=== PATIENT | female | born 1985 | race Caucasian/White ===

== ENCOUNTER 2018-09-22 02:20 | Inpatient (IN) | payer OTHER ==
[2018-09-22] MEDS ORDERED: CITRIC ACID/SODIUM CITRATE 30 ML UNIT-DOSE CUP PO ONE (02:45)
[2018-09-22] MEDS ORDERED: ELECTROLYTE-148 SOLN 500 ML IV ONE (02:45)
--- NOTE | 2018-09-22 03:06 | HP ---
Past Medical History - Admission Chief Complaint: contractions History of Present Illness: 33yo EDC 09/26/18 SIUP at 39.3 weeks presents with c/o ctx. PNC at [facility]-noncompliant and significant for medical history of sarcoidosis, neuropathy, unspecified convulsions, herniated disc, narrowing of spine. Pt denies lof, vaginal bleeding. 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 Weeks Gestation by Dates: 39.3 ...EDC by Dates: 09/26/18 Psych: Yes: Anxiety, Depression Rheumatology: Yes: Sarcoidosis - Past Surgical History Past Surgical History: Yes: Hx Myomectomy: No Hx Transabdominal Cerclage: No - Smoking History Smoking history: Current every day smoker - Alcohol/Substance Use History of Substance Use: reports: None Review of Systems - Review of Systems Constitutional: reports: No Symptoms Eyes: reports: No Symptoms HENT: reports: No Symptoms Neck: reports: No Symptoms Cardiovascular: reports: No Symptoms Respiratory: reports: No Symptoms Gastrointestinal: reports: Abdominal Pain Genitourinary: reports: No Symptoms Breasts: reports: No Symptoms Reported Musculoskeletal: reports: No Symptoms Integumentary: reports: No Symptoms Neurological: reports: No Symptoms Endocrine: reports: No Symptoms Hematology/Lymphatic: reports: No Symptoms Psychiatric: reports: No Symptoms Pain Intensity: 3 Physical Exam - Maternity Constitutional: Yes: Well Nourished, No Distress, Calm Eyes: Yes: WNL, Conjunctiva Clear, EOM Intact HENT: Yes: WNL, Atraumatic, Normocephalic Neck: Yes: WNL, Supple, Trachea Midline Cardiovascular: Yes: WNL, Regular Rate and Rhythm Breast(s): Yes: WNL - Abdominal Exam/OB Number of Fetuses: Single Presentation: Vertex Contractions: Yes Intensity: Mild Monitor Mode: External Category: I Accelerations: Uniform Decelerations: None - Vaginal Exam/OB Vaginal Bleediing: No Dilatation (cm): closed Amniotic Membrane Status: Intact - Physical Exam Extremities: Yes: WNL Hemorrhage Risk Assessment - Risk Factors Medium Risk Factors: Yes: Prior , uterine surgery,or multiple laparotomies, Greater than 4 previous births Risk Score: 2 Risk Level: High Risk Problem List - Problems (1) Previous section Assessment/Plan: 33yo at term with contractions. Pt with multiple comorbidities, high risk patient with care at [facility] admit to labor and delivery IV, admission labs plan for transfer to [facility]; high risk patient at term, early labor Code(s): Z98.891 - HISTORY OF UTERINE SCAR FROM PREVIOUS SURGERY
[2018-09-22] MEDS ORDERED: ELECTROLYTE-148 SOLN 1,000 ML IV SCH (03:15)
[2018-09-22 03:38] LABS: URINE APPEARANCE CLOUDY; URINE BILIRUBIN NEGATIVE (<2.0 mg/dL); URINE COLOR YELLOW; URINE GLUCOSE (UA) NEGATIVE (NEGATIVE); URINE KETONE NEGATIVE (NEGATIVE); URINE LEUK ESTERASE NEGATIVE (NEGATIVE); URINE NITRITE NEGATIVE (NEGATIVE); URINE PROTEIN NEGATIVE (NEGATIVE); URINE UROBILINOGEN NEGATIVE mg/dL (0.2-1.0)
[2018-09-22 03:45] LABS: BASO % 0.2 % (0-2.0); HEMATOCRIT 36.5 % (32.4-45.2); HEMOGLOBIN 12.4 GM/dL (10.7-15.3); LYMPH % 17.9 % (8-40); MCH 30.1 pg (25.7-33.7); MEAN CELL VOLUME 88.6 fl (80-96); MEAN PLT VOLUME 9.7 fl (7.5-11.1); MONO % 7.2 % (3.8-10.2); NEUT % 72.7 % (42.8-82.8); PLATELET COUNT 206 K/MM3 (134-434); RBC 4.12 M/mm3 (3.60-5.2); RDW 14.9 % (11.6-15.6); WHITE BLOOD COUNT 9.9 K/mm3 (4.0-10.0)
[2018-09-22 03:47] LABS: COCAINE, UR NEGATIVE ng/ml (CUTOFF=300); METHADONE, UR NEGATIVE ng/ml (CUTOFF=300); OPIATES, URI NEGATIVE ng/ml (CUTOFF=300); PHENCYCLIDINE,URINE NEGATIVE ng/ml (CUTOFF=25); URINE AMPHETAMINES NEGATIVE ng/ml (CUTOFF=500); URINE BARBITURATES NEGATIVE ng/ml (CUTOFF=200); URINE BENZODIAZEPINES NEGATIVE ng/ml (CUTOFF=200)
[2018-09-22 03:56] LABS: INR 0.94 (0.83-1.09); PROTHROMBIN TIME (PATIENT) 11.1 SEC (9.7-13.0)
[2018-09-22 03:59] LABS: ACTIVATED PTT 27.5 SECONDS (25.2-36.5)
[2018-09-22 04:08] LABS: ALK PHOS 202 U/L (45-117); ANION GAP 12 MMOL/L (8-16); BILIRUBIN,TOTAL 0.2 mg/dL (0.2-1); BLOOD UREA NITROGEN 6 mg/dL (7-18); CALCIUM 8.7 mg/dL (8.5-10.1); CHLORIDE 108 mmol/L (98-107); CO2 20 mmol/L (21-32); CREATININE 0.6 mg/dL (0.55-1.3); GLUCOSE,RANDOM 90 mg/dL (74-106); POTASSIUM 4.4 mmol/L (3.5-5.1); SGOT/AST 8 U/L (15-37); SGPT/ALT 12 U/L (13-61); SODIUM 140 mmol/L (136-145); TOT PROT 6.9 g/dl (6.4-8.2)
[2018-09-22 04:32] VITALS: BMI 37.2
[2018-09-22 04:41] VITALS: BP 121/67; PULSE 78; TEMP 97.8
[2018-09-23 06:06] LABS: HBsAG SCREEN Negative (Negative)
[2018-09-23 08:06] LABS: RUBELLA IgG ANTIBODY 2.37 index (Immune >0.99)
== END 2018-09-22 04:25 | disposition short-term general hospital (02) | DRG 566 ==
LOC: JDEL 02:20 → JLDR 02:45
PROVIDERS: ADMIT Obstetrics & Gynecology; ATTEND Obstetrics & Gynecology
DX: O34.219 Maternal care for unspecified type scar from previous cesarean delivery (principal); O09.93 Supervision of high risk pregnancy, unspecified, third trimester; O99.214 Obesity complicating childbirth; E66.8 Other obesity; O99.343 Other mental disorders complicating pregnancy, third trimester; F41.8 Other specified anxiety disorders; O26.893 Other specified pregnancy related conditions, third trimester; D86.9 Sarcoidosis, unspecified; F17.210 Nicotine dependence, cigarettes, uncomplicated; O15.03 Eclampsia complicating pregnancy, third trimester; Z3A.39 39 weeks gestation of pregnancy; Z91.19 Patient's noncompliance with other medical treatment and regimen
CPT/HCPCS: 36415; 80053; 80307; 81003; 85025; 85610; 85730; 86593; 86762; 86850; 86900; 86901; 87340; 87389

== ENCOUNTER 2018-09-22 20:10 | Inpatient (IN) | payer OTHER ==
[2018-09-22 21:14] VITALS: BMI 37.2
[2018-09-22] MEDS ORDERED: CITRIC ACID/SODIUM CITRATE 30 ML UNIT-DOSE CUP PO ONE (21:30)
[2018-09-22] MEDS ORDERED: ELECTROLYTE-148 SOLN 1,000 ML IV SCH (21:30)
--- NOTE | 2018-09-22 21:36 | HP ---
Past Medical History - Primary Care Physician PCP:: Bakari Sin - Admission Chief Complaint: 39 weeks, 5 previous c/s. 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 Weeks Gestation by Dates: 39.3 ...EDC by Dates: 09/26/18 ...EDC by Sono: 10/06/18 Psych: Yes: Anxiety, Depression Rheumatology: Yes: Sarcoidosis - Past Surgical History Past Surgical History: Yes: Hx Myomectomy: No Hx Transabdominal Cerclage: No Additional Surgical History: hx of ectopic - Smoking History Smoking history: Current every day smoker Have you smoked in the past 12 months: Yes Aproximately how many cigarettes per day: 10 - Alcohol/Substance Use Hx Alcohol Use: No History of Substance Use: reports: None - Social History History of Recent Travel: No Home Medications - Allergies Allergies/Adverse Reactions: Allergies Allergy/AdvReac Type Severity Reaction Status Date / Time blueberry Allergy Verified 09/22/18 20:41 cashew nut Allergy Verified 09/22/18 20:41 honey Allergy Verified 09/22/18 20:41 methotrexate Allergy Verified 09/22/18 20:41 mushroom Allergy Verified 09/22/18 20:41 prednisone Allergy Verified 09/22/18 20:41 - Home Medications Home Medications: Ambulatory Orders Albuterol Sulfate Inhaler - [Ventolin Hfa Inhaler -] 1 puff IH PRN 09/22/18 Vit 108/Iron/Folic AC [ One Tablet] 1 each PO DAILY 09/22/18 Review of Systems - Review of Systems Constitutional: reports: No Symptoms Eyes: reports: No Symptoms HENT: reports: No Symptoms Neck: reports: No Symptoms Cardiovascular: reports: No Symptoms Respiratory: reports: No Symptoms Gastrointestinal: reports: No Symptoms Genitourinary: reports: Vaginal Bleeding Breasts: reports: No Symptoms Reported Musculoskeletal: reports: No Symptoms Integumentary: reports: No Symptoms Neurological: reports: No Symptoms Endocrine: reports: No Symptoms Hematology/Lymphatic: reports: No Symptoms Psychiatric: reports: No Symptoms Physical Exam - Maternity Vital Signs: Vital Signs Temperature 98.5 F 09/22/18 20:48 Pulse Rate 84 09/22/18 20:48 Respiratory Rate 19 09/22/18 20:48 Blood Pressure 121/61 09/22/18 20:48 O2 Sat by Pulse Oximetry (%) Constitutional: Yes: Obese Eyes: Yes: WNL HENT: Yes: WNL Neck: Yes: WNL - Abdominal Exam/OB Fundal Height: 38 Number of Fetuses: Single Presentation: Vertex Contractions: Yes Regularity: Irregular Intensity: Mild Monitor Mode: External Heart Rate Location: [facility] Category: I Accelerations: Uniform Decelerations: None - Vaginal Exam/OB Vaginal Bleediing: Bloody Show Speculum Exam: Yes Dilatation (cm): closed Effacement (%): 50 Presentation: Vertex/Position Station: -3 - Physical Exam Musculoskeletal: Yes: WNL Extremities: Yes: WNL Edema: Yes Edema: LLE: 1+, RLE: 1+ Deep Tendon Reflex Grade: Normal +2 ...Motor Strength: WNL Psychiatric: Yes: WNL Hemorrhage Risk Assessment - Risk Factors Medium Risk Factors: Yes: Prior , uterine surgery,or multiple laparotomies, Greater than 4 previous births Risk Score: 2 Risk Level: High Risk Problem List - Problems (1) with 39 completed weeks gestation Code(s): Z3A.39 - 39 WEEKS GESTATION OF (2) Previous section Code(s): Z98.891 - HISTORY OF UTERINE SCAR FROM PREVIOUS SURGERY (3) Obesity Code(s): E66.9 - OBESITY, UNSPECIFIED (4) Prior poor obstetrical history in third trimester, antepartum Code(s): O09.293 - SUPRVSN OF PREG W POOR REPRODCTV OR OBSTET HX, THIRD TRI Assessment/Plan plan admit, fhm, bedside sono, transfer to [facility] , risks of c/s here discussed , report given to DR Bridges at [facility], transfer [facility]
[2018-09-22 22:13] VITALS: BP 120/74; PULSE 91; TEMP 98.5
--- NOTE | 2018-09-25 14:39 | DS ---
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: Vital Signs Temperature 98.5 F 09/22/18 21:55 Pulse Rate 91 H 09/22/18 21:55 Respiratory Rate 20 09/22/18 21:55 Blood Pressure 120/74 09/22/18 21:55 O2 Sat by Pulse Oximetry (%) Constitutional: Yes: Well Nourished, No Distress, Calm Eyes: Yes: WNL, Conjunctiva Clear, EOM Intact HENT: Yes: WNL, Atraumatic, Normocephalic Neck: Yes: WNL, Supple, Trachea Midline Cardiovascular: Yes: WNL, Regular Rate and Rhythm Respiratory: Yes: WNL, Regular, CTA Bilaterally Gastrointestinal: Yes: WNL ...Rectal Exam: Yes: WNL Renal/: Yes: WNL Cervix: Yes: Normal, Bleeding Adnexa: Not Palpable: Left, Right Breast(s): Yes: WNL Musculoskeletal: Yes: WNL Extremities: Yes: WNL Integumentary: Yes: WNL Neurological: Yes: WNL, Alert, Oriented ...Motor Strength: WNL Psychiatric: Yes: WNL, Alert, Oriented Discharge Summary Reason For Visit: LABOR Procedures: Principal: admitted for transfer to [facility]. fhr cat 1, vs stable Condition: Stable - Instructions Disposition: TRANSFER ACUTE CARE/OTHER HOSP - Home Medications Comprehensive Discharge Medication List: Ambulatory Orders Albuterol Sulfate Inhaler - [Ventolin Hfa Inhaler -] 1 puff IH PRN 09/22/18 Vit 108/Iron/Folic AC [ One Tablet] 1 each PO DAILY 09/22/18
== END 2018-09-22 22:12 | disposition short-term general hospital (02) | DRG 560 ==
LOC: JLDR 20:10
PROVIDERS: ADMIT Obstetrics & Gynecology; ATTEND Obstetrics & Gynecology
DX: O67.8 Other intrapartum hemorrhage (principal); O75.89 Other specified complications of labor and delivery; O34.211 Maternal care for low transverse scar from previous cesarean delivery; N85.8 Other specified noninflammatory disorders of uterus; O99.214 Obesity complicating childbirth; E66.9 Obesity, unspecified; O09.293 Supervision of pregnancy with other poor reproductive or obstetric history, third trimester; Z68.37 Body mass index [BMI] 37.0-37.9, adult; Z3A.39 39 weeks gestation of pregnancy; F17.210 Nicotine dependence, cigarettes, uncomplicated
CPT/HCPCS: 76815-TC

== ENCOUNTER 2021-12-12 04:12 | Observation (INO) | payer OTHER ==
[2021-12-12] MEDS ORDERED: ACETAMINOPHEN 1000 MG/100 ML BAG IVPB ONE (04:57)
[2021-12-12] MEDS ORDERED: ACETAMINOPHEN INJECTION 100 ML IVPB ONE (05:26)
[2021-12-12 05:59] LABS: BASO % 0.4 % (0-2.0); EOS % 2.7 % (0-4.5); HEMATOCRIT 38.6 % (32.4-45.2); HEMOGLOBIN 12.9 GM/dL (10.7-15.3); LYMPH % 20.6 % (8-40); MCHC 33.5 g/dl (32.0-36.0); MEAN CELL VOLUME 86.8 fl (80-96); MEAN PLT VOLUME 9.5 fl (7.5-11.1); MONO % 8.3 % (3.8-10.2); PLATELET COUNT 184 10^3/uL (134-434); RBC 4.44 M/mm3 (3.60-5.2); RDW 13.6 % (11.6-15.6); WHITE BLOOD COUNT 5.8 K/mm3 (4.0-10.0)
[2021-12-12 06:26] LABS: CHLORIDE 109 mmol/L (98-107); SODIUM 141 mmol/L (136-145)
[2021-12-12 06:28] LABS: ALBUMIN 3.8 g/dl (3.4-5.0); ANION GAP 7 MMOL/L (8-16); BLOOD UREA NITROGEN 13.7 mg/dL (7-18); CALCIUM 8.8 mg/dL (8.5-10.1); CO2 25 mmol/L (21-32); GLUCOSE,RANDOM 108 mg/dL (74-106); LIPASE 72 U/L (73-393)
[2021-12-12 06:31] LABS: CREATININE 0.8 mg/dL (0.55-1.3); SGOT/AST 11 U/L (15-37); SGPT/ALT 22 U/L (13-61)
[2021-12-12 06:33] LABS: BILIRUBIN,TOTAL 0.3 mg/dL (0.2-1); TOT PROT 7.1 g/dl (6.4-8.2)
[2021-12-12 06:34] LABS: ALK PHOS 77 U/L (45-117)
[2021-12-12 08:23] LABS: INR 1.08 (0.83-1.09); PROTHROMBIN TIME (PATIENT) 12.4 SEC (9.7-13.0)
[2021-12-12 08:26] LABS: ACTIVATED PTT 30.8 SECONDS (25.2-36.5)
[2021-12-12] MEDS ORDERED: SODIUM CHLORIDE 500 ML IV STA (09:58)
[2021-12-12] MEDS ORDERED: ONDANSETRON 4 MG/2 ML VIAL IVPUSH ONE (09:58)
[2021-12-12] MEDS ORDERED: ASPIRIN 81 MG CHEWABLE TABLETS PO ONE (09:59)
[2021-12-12] MEDS ORDERED: ONDANSETRON 4 MG/2 ML VIAL ONE (10:25)
[2021-12-12] MEDS ORDERED: ASPIRIN 81 MG CHEWABLE TABLETS ONE (10:25)
[2021-12-12] MEDS ORDERED: ACETAMINOPHEN 325 MG TABLET (FP) PO PRN (10:58)
[2021-12-12] MEDS ORDERED: ALBUTEROL SO4 HFA INHALER IH SCH (11:45)
[2021-12-12] MEDS ORDERED: ATORVASTATIN CA 40 MG TABLET (FP) ONE (11:48)
[2021-12-12] MEDS ORDERED: ATORVASTATIN CA 40 MG TABLET (FP) PO ONE (12:00)
[2021-12-12] MEDS: BUDESONIDE/FORMETEROL FUMARATE 160/4.5 mcg INHALER IH SCH (12:24)
[2021-12-12] MEDS ORDERED: ALBUTEROL SO4 HFA INHALER IH PRN (12:35)
[2021-12-12 12:38] LABS: CHOLESTEROL 133 mg/dL (50-200); LDL CHOLESTEROL (ONLY SJRH) 80 mg/dL (5-100); TRIGLYCERIDES 180 mg/dL (0-150)
[2021-12-12 12:41] LABS: HDL CHOLESTEROL 30 mg/dL (40-60)
[2021-12-12] MEDS ORDERED: ACETAMINOPHEN 325 MG TABLET (FP) ONE (16:24)
[2021-12-12] MEDS ORDERED: MONTELUKAST NA 10 MG TABLET PO SCH (22:00)
[2021-12-13 00:07] VITALS: BMI 40.1
[2021-12-13] MEDS: levETIRAcetam 500 MG TABLET (FP) PO SCH ×2 (07:06→11:35)
[2021-12-13 07:25] LABS: BASO % 0.3 % (0-2.0); EOS % 3.7 % (0-4.5); HEMATOCRIT 37.4 % (32.4-45.2); HEMOGLOBIN 12.9 GM/dL (10.7-15.3); LYMPH % 24.1 % (8-40); MCH 30.3 pg (25.7-33.7); MCHC 34.5 g/dl (32.0-36.0); MONO % 9.8 % (3.8-10.2); NEUT % 62.1 % (42.8-82.8); PLATELET COUNT 164 10^3/uL (134-434); RBC 4.25 M/mm3 (3.60-5.2); RDW 13.9 % (11.6-15.6); WHITE BLOOD COUNT 5.3 K/mm3 (4.0-10.0)
[2021-12-13 08:07] LABS: ALBUMIN 3.4 g/dl (3.4-5.0)
[2021-12-13 08:08] LABS: BLOOD UREA NITROGEN 15.7 mg/dL (7-18); CALCIUM 8.4 mg/dL (8.5-10.1); MAGNESIUM 2.1 mg/dL (1.8-2.4)
[2021-12-13 08:10] LABS: CREATININE 0.9 mg/dL (0.55-1.3); PHOSPHOROUS 3.5 mg/dL (2.5-4.9)
[2021-12-13 08:11] LABS: BILIRUBIN,TOTAL 0.6 mg/dL (0.2-1); TOT PROT 6.5 g/dl (6.4-8.2)
[2021-12-13] MEDS ORDERED: ENOXAPARIN NA (PORCINE) 40 MG/0.4 ML DISP.SYRIN SQ SCH (10:00)
[2021-12-13] MEDS: BUDESONIDE/FORMETEROL FUMARATE 160/4.5 mcg INHALER IH SCH (11:36)
[2021-12-13 14:28] VITALS: BP 110/74; PULSE 70; TEMP 98.5
== END 2021-12-13 18:48 | disposition home or self-care (01) ==
LOC: JER 04:12 → JERBED 10:53 → J4W 12-13 00:09
PROVIDERS: ADMIT Internal Medicine; ATTEND Internal Medicine
PROC: 3E033NZ Introduction of Analgesics, Hypnotics, Sedatives into Peripheral Vein, Percutaneous Approach (ICD-10-PCS; principal; 2021-12-12)
PROC: 3E023GC Introduction of Other Therapeutic Substance into Muscle, Percutaneous Approach (ICD-10-PCS; 2021-12-12)
PROC: 3E033GC Introduction of Other Therapeutic Substance into Peripheral Vein, Percutaneous Approach (ICD-10-PCS; 2021-12-12)
DX: R07.9 Chest pain, unspecified (principal); R11.2 Nausea with vomiting, unspecified; R06.02 Shortness of breath; J45.909 Unspecified asthma, uncomplicated; D86.9 Sarcoidosis, unspecified; R56.9 Unspecified convulsions; Z86.73 Personal history of transient ischemic attack (TIA), and cerebral infarction without residual deficits; F41.9 Anxiety disorder, unspecified; M54.9 Dorsalgia, unspecified; K21.9 Gastro-esophageal reflux disease without esophagitis; F32.9 Major depressive disorder, single episode, unspecified; F41.8 Other specified anxiety disorders; E66.9 Obesity, unspecified; Z68.41 Body mass index [BMI] 40.0-44.9, adult; Z88.8 Allergy status to other drugs, medicaments and biological substances; Z91.018 Allergy to other foods; R73.03 Prediabetes; G62.9 Polyneuropathy, unspecified; J44.9 Chronic obstructive pulmonary disease, unspecified; F17.210 Nicotine dependence, cigarettes, uncomplicated; Z98.891 History of uterine scar from previous surgery
CPT/HCPCS: 36415; 71045-TC-FY; 71275-TC; 80053; 80061; 82550; 83036; 83690; 83735; 84100; 84484; 84703; 85025; 85610; 85730; 93005; 93010; 93306-TC; 93351; 96372; 96374; 96375; 99285-25; C9803; G0378; J0131; Q9967; U0003; U0005

== ENCOUNTER 2022-02-19 09:22 | Emergency (ER) | payer OTHER ==
[2022-02-19 09:44] VITALS: BP 117/64; PULSE 70; TEMP 98.2; BMI 35.4
[2022-02-19] MEDS ORDERED: KETOROLAC TROMETHAMINE 30 MG/1 ML VIAL IM ONE (10:19)
[2022-02-19] MEDS ORDERED: LIDOCAINE 5% TOPICAL PATCH TP ONE (10:27)
[2022-02-19] MEDS ORDERED: ACETAMINOPHEN 500 MG TABLET (FP) PO ONE (10:27)
[2022-02-19] MEDS ORDERED: METHOCARBAMOL 500 MG TABLET PO ONE (10:27)
[2022-02-19] MEDS ORDERED: KETOROLAC TROMETHAMINE 30 MG/1 ML VIAL ONE (10:37)
[2022-02-19] MEDS ORDERED: ACETAMINOPHEN 325 MG TABLET (FP) ONE (10:37)
[2022-02-19] MEDS ORDERED: METHOCARBAMOL 500 MG TABLET ONE (10:37)
[2022-02-19] MEDS ORDERED: LIDOCAINE 5% TOPICAL PATCH ONE (10:37)
[2022-02-19 12:49] LABS: EPI CELLS 11 /uL (0-25.1); HYALINE CASTS 0 /uL (0-3.1); URINE APPEARANCE CLEAR; URINE BACTERIA >9,000 /uL (0-1359); URINE BILIRUBIN NEGATIVE (NEGATIVE); URINE COLOR YELLOW; URINE GLUCOSE (UA) NEGATIVE (NEGATIVE); URINE KETONE NEGATIVE (NEGATIVE); URINE LEUK ESTERASE TRACE (NEGATIVE); URINE NITRITE POSITIVE (NEGATIVE); URINE PROTEIN NEGATIVE (NEGATIVE); URINE RBC 2 /uL (0-23.9); URINE UROBILINOGEN 0.2 mg/dL (0.2-1.0); URINE WBC 21 /uL (0-25.8)
[2022-02-19] MEDS ORDERED: NITROFURANTOIN MACROCRYSTAL 50 MG CAPSULE (FP) PO SCH (13:15)
[2022-02-19] MEDS ORDERED: NITROFURANTOIN MACROCRYSTAL 50 MG CAPSULE (FP) ONE (13:47)
[2022-02-19] MEDS ORDERED: LIDOCAINE PATCH REMOVAL MC ONE (22:00)
== END 2022-02-19 13:57 | disposition home or self-care (01) ==
LOC: JER 09:22
PROC: 3E023GC Introduction of Other Therapeutic Substance into Muscle, Percutaneous Approach (ICD-10-PCS; principal; 2022-02-19)
DX: M79.605 Pain in left leg (principal); R20.2 Paresthesia of skin; V03.10XA Pedestrian on foot injured in collision with car, pick-up truck or van in traffic accident, initial encounter
CPT/HCPCS: 72100-TC-FY; 72170-TC-FY; 73502-TC-LT-FY; 73552-TC-LT-FY; 73562-TC-LT-FY; 73590-TC-LT-FY; 81003; 84703; 99284-25

== ENCOUNTER 2022-07-11 10:50 | Emergency (ER) | payer OTHER ==
[2022-07-11 11:20] VITALS: BP 108/73; PULSE 91; RESP 18; TEMP 98.3; BMI 31.8
[2022-07-11] MEDS ORDERED: SODIUM CHLORIDE 0.9% 500 ML INFUS.BAG IV ONE (13:14)
[2022-07-11] MEDS ORDERED: ALBUTEROL SO4 0.083% IH SOL 2.5 MG/3 ML VIAL.NEB. NEB ONE ×2 (13:15→14:15)
[2022-07-11 14:47] LABS: BASO % 0.3 % (0-2.0); EOS % 2.7 % (0-4.5); HEMATOCRIT 38.8 % (32.4-45.2); HEMOGLOBIN 13.4 GM/dL (10.7-15.3); LYMPH % 24.1 % (8-40); MCH 30.2 pg (25.7-33.7); MCHC 34.6 g/dl (32.0-36.0); MEAN CELL VOLUME 87.4 fl (80-96); MEAN PLT VOLUME 8.8 fl (7.5-11.1); MONO % 5.5 % (3.8-10.2); NEUT % 67.4 % (42.8-82.8); PLATELET COUNT 221 10^3/uL (134-434); RBC 4.43 M/mm3 (3.60-5.2); RDW 13.9 % (11.6-15.6); WHITE BLOOD COUNT 6.3 K/mm3 (4.0-10.0)
[2022-07-11 15:09] LABS: CALCIUM 8.7 mg/dL (8.5-10.1)
[2022-07-11 15:10] LABS: ALBUMIN 3.8 g/dl (3.4-5.0); BLOOD UREA NITROGEN 13.9 mg/dL (7-18)
[2022-07-11 15:13] LABS: CREATININE 0.8 mg/dL (0.55-1.3)
[2022-07-11 15:14] LABS: BILIRUBIN,TOTAL 0.7 mg/dL (0.2-1); TOT PROT 7.3 g/dl (6.4-8.2)
== END 2022-07-11 18:50 | disposition home or self-care (01) ==
LOC: JER 10:50
PROC: 3E0F7GC Introduction of Other Therapeutic Substance into Respiratory Tract, Via Natural or Artificial Opening (ICD-10-PCS; principal; 2022-07-11)
DX: U07.1 COVID-19 (principal); R06.02 Shortness of breath
CPT/HCPCS: 36415; 71046-TC-FY; 80053; 85025; 99284-25

== ENCOUNTER 2024-03-19 04:13 | Emergency (ER) | payer OTHER ==
[2024-03-19 04:28] VITALS: BMI 38.9
[2024-03-19] MEDS ORDERED: LIDOCAINE 4% PATCH TP ONE (06:09)
[2024-03-19] MEDS ORDERED: KETOROLAC TROMETHAMINE 15 MG/ML VIAL ONE (06:13)
[2024-03-19] MEDS: LIDOCAINE 4% PATCH TP ONE (06:24)
[2024-03-19] MEDS: KETOROLAC TROMETHAMINE 15 MG/ML VIAL IM ONE (06:24)
[2024-03-19] MEDS: KETOROLAC TROMETHAMINE 15 MG/ML VIAL IVPUSH ONE (06:47)
[2024-03-19 06:49] VITALS: BP 112/49; PULSE 66; RESP 20; TEMP 98.6
== END 2024-03-19 07:56 | disposition home or self-care (01) ==
LOC: JER 04:13
PROC: 3E023GC Introduction of Other Therapeutic Substance into Muscle, Percutaneous Approach (ICD-10-PCS; principal; 2024-03-19)
DX: R07.89 Other chest pain (principal); M79.602 Pain in left arm; R42 Dizziness and giddiness; R06.02 Shortness of breath; R20.0 Anesthesia of skin; R20.2 Paresthesia of skin; M54.2 Cervicalgia
CPT/HCPCS: 36415; 71046-TC-FY; 84484; 93005; 93010; 99285-25